=== PATIENT | female | born 1985 | race Caucasian/White ===

== ENCOUNTER 2018-01-18 08:59 | Emergency (ER) | payer SELFPAY ==
[~2018-01-18] VITALS: Ht 167.6 cm; Wt 104.3 kg
[2018-01-18] MEDS ORDERED: KETOROLAC TROMETHAMINE 30 MG/ML VIAL IV STA (09:29)
[2018-01-18] MEDS ORDERED: DIPHENHYDRAMINE HCL INJ 50 MG/ML VIAL IV ONE (09:30)
[2018-01-18] MEDS ORDERED: SODIUM CHLORIDE 0.9% 1000ML 1,000 ML IV ONE (09:30)
[2018-01-18] MEDS ORDERED: METOCLOPRAMIDE HCL 10 MG/2ML VIAL IV ONE (09:30)
[2018-01-18 09:42] LABS: BASOPHILS # (AUTO) 0.2 (0.0-0.1); BASOPHILS % 1.7 % (0.0-1.0); EOSINOPHILS # (AUTO) 0.2 (0.0-0.4); EOSINOPHILS % 1.7 % (0.0-6.0); HEMOGLOBIN 12.4 g/dL (12.0-16.0); LYMPHOCYTES # (AUTO) 6.4 (1.0-3.2); LYMPHOCYTES % 60.4 % (18.0-39.1); MEAN CORPUSCULAR HEMOGLOBIN 29.2 pg (28-32); MEAN CORPUSCULAR HGB CONC 33.5 g/dL (31-35); MEAN CORPUSCULAR VOLUME 87.1 fL (81-99); MONOCYTES # (AUTO) 0.4 (0.2-0.8); NEUTROPHILS # (AUTO) 3.1 (2.1-6.9); NEUTROPHILS % 29.3 % (38.7-80.0); PLATELET COUNT 175 x10e3/uL (140-360); RED BLOOD COUNT 4.25 x10e6/uL (3.6-5.1); RED CELL DISTRIBUTION WIDTH 13.9 % (11.7-14.4)
[2018-01-18 09:52] LABS: CLARITY,URINE CLOUDY (CLEAR); COLOR,URINE AMBER (YELLOW); LEUKOCYTE ESTERASE ,URINE TRACE (NEGATIVE); NITRITE,URINE NEGATIVE (NEGATIVE)
[2018-01-18 09:53] LABS: BILIRUBIN,URINE NEGATIVE (NEGATIVE); KETONES,URINE TRACE (NEGATIVE); PROTEIN,URINE DIPSTICK TRACE (NEGATIVE); URINE UROBILINOGEN 0.2 mg/dL (0.2 - 1)
[2018-01-18 10:00] LABS: ALANINE AMINOTRANSFERASE 117 IU/L (0-55); ALBUMIN 3.2 g/dL (3.5-5.0); ALBUMIN/GLOBULIN RATIO 0.8 (0.8-2.0); ALKALINE PHOSPHATASE 106 IU/L (40-150); ANION GAP 12.3 mmol/L (8-16); BLOOD UREA NITROGEN 9 mg/dL (7-26); BUN/CREATININE RATIO 12 (6-25); CALCIUM 9.1 mg/dL (8.4-10.2); CARBON DIOXIDE 26 mmol/L (22-29); CHLORIDE 105 mmol/L (98-107); CREATININE, SERUM 0.76 mg/dL (0.57-1.11); EST GLOMERULAR FILTRATION RATE > 60 ML/MIN (60-); GLUCOSE 89 mg/dL (74-118); LIPASE 17 U/L (8-78); POTASSIUM 4.3 mmol/L (3.5-5.1); SODIUM 139 mmol/L (136-145)
[2018-01-18 10:06] LABS: EPITHELIAL CELLS,URINE MANY /LPF; RBC,URINE 0-5 /HPF (0-5)
[2018-01-18 10:07] LABS: BACTERIA,URINE MODERATE /HPF
[2018-01-18] MEDS ORDERED: KEFLEX500 MG PO (12:14)
[2018-01-18] MEDS ORDERED: FIORINAL 50-321 EACH PO (12:34)
[2018-01-18 12:43] VITALS: BP 108/80
== END 2018-01-18 12:35 | disposition home or self-care (01) ==
LOC: ER 08:59 → EDBD 08:59 → ER 12:35
DX: R53.1 Weakness (principal); N30.91 Cystitis, unspecified with hematuria; N39.0 Urinary tract infection, site not specified
CPT/HCPCS: 36415; 80053; 81001; 82948; 83690; 85025; 87400; 99283; J1200; J1885; J2765; J7030